=== PATIENT | male | born 1945 | race Caucasian/White ===

== ENCOUNTER 2022-06-26 14:22 | Emergency (ER) | payer MEDICARE ==
[~2022-06-26] VITALS: Ht 177.8 cm; Wt 119.3 kg
[2022-06-26 14:57] VITALS: BP 131/55
[2022-06-26 15:01] VITALS: BP 140/60
[2022-06-26] MEDS ORDERED: FLOXIN OTIC0.3 % AS (15:31)
[2022-06-26 16:01] VITALS: BP 133/55
== END 2022-06-26 16:00 | disposition home or self-care (01) ==
LOC: ED 14:22
DX: H60.92 Unspecified otitis externa, left ear (principal); M10.9 Gout, unspecified